=== PATIENT | female | born 1940 | race Caucasian/White ===

== ENCOUNTER 2018-04-04 09:31 | Emergency (ER) | payer SELFPAY ==
[2018-04-04] MEDS ORDERED: DEXTROSE (50%) 50ML SYRG IV ONE (09:32)
[2018-04-04] MEDS ORDERED: SODIUM BICARBONATE 8.4% INJ 50ML SYRINGE IV ONE (09:32)
[2018-04-04] MEDS ORDERED: EPINEPHrine HCL 1 MG/10 ML SYRG IV ONE (09:32)
[2018-04-04] MEDS ORDERED: SODIUM BICARBONATE 8.4 % INJ 50ML VIAL IV ONE (09:41)
== END 2018-04-04 13:56 | disposition expired ==
LOC: ER 09:31
DX: I46.9 Cardiac arrest, cause unspecified (principal); I25.10 Atherosclerotic heart disease of native coronary artery without angina pectoris; I10 Essential (primary) hypertension; Z85.118 Personal history of other malignant neoplasm of bronchus and lung; Z98.61 Coronary angioplasty status
CPT/HCPCS: 92950; 99285; J0171; J7042